=== PATIENT | female | born 1975 | race Caucasian/White ===

== ENCOUNTER 2020-01-27 12:41 | Inpatient (IN) | payer MEDICAID ==
[~2020-01-27] VITALS: Ht 165.1 cm; Wt 80.9 kg
[2020-01-27 13:00] VITALS: BP 129/61
[2020-01-27 13:17] LABS: MICROSCOPIC INDICATED
[2020-01-27 13:27] LABS: BASOPHILS # (AUTO) 0.01 x10^3/uL (0-0.1); BASOPHILS % (AUTO) 0 % (0-1); EOSINOPHILS # (AUTO) 0.06 x10^3/uL (0-0.4); EOSINOPHILS % (AUTO) 1 % (1-7); LYMPHOCYTES # (AUTO) 0.93 x10^3/uL (1-3.4); LYMPHOCYTES % (AUTO) 10 % (22-44); MD NO; MEAN CORPUSCULAR HEMOGLOBIN 29.2 pg (27.0-34.8); MEAN CORPUSCULAR HGB CONC 33.4 g/dL (32.4-35.8); MEAN CORPUSCULAR VOLUME 87.4 fL (80-100); MEAN PLATELET VOLUME 7.2 fL (7.4-10.4); MONOCYTES # (AUTO) 0.43 x10^3/uL (0.2-0.8); MONOCYTES % (AUTO) 5 % (2-9); NEUTROPHILS # (AUTO) 7.63 x10^3/uL (1.8-6.8); NEUTROPHILS % (AUTO) 84 % (42-75); PLATELET COUNT 376 x10^3/uL (130-400); RED BLOOD COUNT 3.33 x10^6/uL (3.82-5.3); RED CELL DISTRIBUTION WIDTH 12.9 % (9.6-15.2)
[2020-01-27 13:33] VITALS: BP 129/61
[2020-01-27 14:00] LABS: AMPHETAMINE SCREEN, URINE Positive (Negative); BARBITURATE SCREEN, URINE Negative (Negative); BENZODIAZEPINE SCREEN, URINE Negative (Negative); CANNABINOID SCREEN, URINE Negative (Negative); COCAINE SCREEN, URINE Negative (Negative); METHADONE SCREEN, URINE Negative (Negative); OPIATE SCREEN, URINE Negative (Negative)
[2020-01-27] MEDS ORDERED: NITR100C56 PO (15:15)
[2020-01-27] MEDS ORDERED: PREN1TAB10 PO (15:16)
[2020-01-27 15:53] LABS: CLUE CELLS NONE SEEN (NONE SEEN); WET PREP WBCS MANY (FEW)
[2020-01-27] MEDS ORDERED: CALCIUM CARBONATE 500 MG TAB.CHEW ONE (16:29)
[2020-01-27] MEDS ORDERED: CALCIUM CARBONATE 500 MG TAB.CHEW PO ONE (17:00)
[2020-01-27] MEDS ORDERED: BETAMETHASONE 6 MG/ML, 5ML IM ONE (17:43)
[2020-01-27] MEDS: BETAMETHASONE 6 MG/ML, 5ML IM SCH (17:48)
[2020-01-27 17:55] LABS: ALANINE AMINOTRANSFERASE 8 U/L (12-78); ALBUMIN 2.5 g/dL (3.4-5.0); ANION GAP 5 mmol/L (5-15); CALCIUM 8.3 mg/dL (8.5-10.1); CHLORIDE 110 mmol/L (98-107); CREATININE 0.62 mg/dL (0.55-1.02)
[2020-01-27 17:57] LABS: ALKALINE PHOSPHATASE 128 U/L (45-117); BILIRUBIN,TOTAL 0.4 mg/dL (0.2-1.0); TOTAL PROTEIN 5.8 g/dL (6.4-8.2)
[2020-01-27] MEDS ORDERED: NEWBORN KIT ONE (18:08)
[2020-01-27] MEDS: LACTATED RINGERS 1,000 ML IV SCH (18:16)
[2020-01-27] MEDS ORDERED: LACTATED RINGERS 1,000 ML IVBOLUS ONE (18:30)
[2020-01-27] MEDS ORDERED: metroNIDAZOLE 500 MG TABLET PO ONE (18:30)
[2020-01-27] MEDS ORDERED: ACETAMINOPHEN 325 MG TABLET PO PRN (19:00)
[2020-01-27] MEDS ORDERED: NICOTINE 14MG/24 HR PATCH.TD24 TD ONE (19:00)
[2020-01-27] MEDS ORDERED: ONDANSETRON 2MG/ML, 2ML IVPush PRN (19:00)
[2020-01-27] MEDS: AMPICILLIN 2 GM in SODIUM CHLORIDE 0.9% 100 ML IV SCH (19:26)
[2020-01-27] MEDS ORDERED: AZITHROMYCIN 500 MG in SODIUM CHLORIDE 0.9% 250 ML IV ONE (20:00)
[2020-01-27] MEDS ORDERED: SODIUM CITRATE/CITRIC ACID 30 ML UDC PO ONE (20:30)
[2020-01-27] MEDS ORDERED: METOCLOPRAMIDE 5 MG/ML, 2ML IV ONE (20:30)
[2020-01-27 20:40] VITALS: BP 109/57
[2020-01-27] MEDS ORDERED: TERBUTALINE 1 MG/ML, 1ML ONE (21:21)
[2020-01-27] MEDS ORDERED: TERBUTALINE 1 MG/ML, 1ML IV ONE (21:30)
[2020-01-28] MEDS ORDERED: DIPHENHYDRAMINE 25 MG CAPSULE ONE (00:41)
[2020-01-28] MEDS: DIPHENHYDRAMINE 25 MG CAPSULE PO PRN (01:00)
[2020-01-28] MEDS: AMPICILLIN 2 GM in SODIUM CHLORIDE 0.9% 100 ML IV SCH ×4 (01:01→19:17)
[2020-01-28] MEDS ORDERED: CALCIUM CARBONATE 500 MG TAB.CHEW ONE ×5 (01:02→22:16)
[2020-01-28] MEDS: CALCIUM CARBONATE 500 MG TAB.CHEW PO PRN ×5 (01:02→22:15)
[2020-01-28] MEDS: LACTATED RINGERS 1,000 ML IV SCH ×3 (01:08→23:00)
[2020-01-28 01:09] VITALS: BP 109/56
[2020-01-28 04:35] VITALS: BP 104/55
[2020-01-28] MEDS ORDERED: PRENATAL VIT/IRON/FA 1 EACH TABLET ONE (09:18)
[2020-01-28] MEDS: PRENATAL VIT/IRON/FA 1 EACH TABLET PO SCH (09:19)
[2020-01-28] MEDS ORDERED: ACETAMINOPHEN 325 MG TABLET ONE (09:50)
[2020-01-28] MEDS: BETAMETHASONE 6 MG/ML, 5ML IM SCH (17:39)
[2020-01-28] MEDS: NICOTINE 14MG/24 HR PATCH.TD24 TD SCH (21:02)
[2020-01-28] MEDS ORDERED: FAMOTIDINE 20 MG TABLET ONE (21:44)
[2020-01-28] MEDS ORDERED: FAMOTIDINE 20 MG TABLET PO PRN (22:00)
[2020-01-29] MEDS ORDERED: DIPHENHYDRAMINE 25 MG CAPSULE ONE (00:29)
[2020-01-29] MEDS: DIPHENHYDRAMINE 25 MG CAPSULE PO PRN ×2 (00:30→21:18)
[2020-01-29] MEDS: AMPICILLIN 2 GM in SODIUM CHLORIDE 0.9% 100 ML IV SCH ×3 (01:38→13:32)
[2020-01-29] MEDS: LACTATED RINGERS 1,000 ML IV SCH ×3 (02:16→16:23)
[2020-01-29 07:46] VITALS: BP 115/57
[2020-01-29] MEDS ORDERED: PRENATAL VIT/IRON/FA 1 EACH TABLET ONE (08:08)
[2020-01-29] MEDS: PRENATAL VIT/IRON/FA 1 EACH TABLET PO SCH (09:00)
[2020-01-29] MEDS ORDERED: SODIUM CITRATE/CITRIC ACID 30 ML UDC ONE (11:27)
[2020-01-29] MEDS ORDERED: METOCLOPRAMIDE 5 MG/ML, 2ML ONE (11:27)
[2020-01-29] MEDS ORDERED: OXYTOCIN 30U/ 0.9% NaCL 500ML 500 ML ONE (11:30)
[2020-01-29] MEDS: OXYTOCIN 30U/ 0.9% NaCL 500ML 500 ML IV SCH (16:23)
[2020-01-29] MEDS ORDERED: MISOPROSTOL 200 MCG TABLET ONE (16:25)
[2020-01-29] MEDS ORDERED: morphine SULFATE/PF 0.5 MG/ML, 10ML ONE (16:26)
[2020-01-29] MEDS ORDERED: MORPHINE SULFATE 4 MG/ML, 1ML IVPush PRN (16:30)
[2020-01-29] MEDS ORDERED: MISOPROSTOL 200 MCG TABLET PR PRN (16:30)
[2020-01-29] MEDS ORDERED: METHYLERGONOVINE 0.2 MG/ML IM PRN (16:30)
[2020-01-29] MEDS ORDERED: morphine SULFATE 10 MG/ML, 1ML IVPush PRN (16:30)
[2020-01-29] MEDS ORDERED: OXYcodone/APAP 5/325MG TABLET PO PRN ×4 (16:30→20:00)
[2020-01-29] MEDS ORDERED: ACETAMINOPHEN 325 MG TABLET PO PRN (16:30)
[2020-01-29] MEDS ORDERED: CARBOPROST TROMETHAMINE 250 MCG/ML, 1ML IM PRN (16:30)
[2020-01-29] MEDS ORDERED: IBUPROFEN 600 MG TABLET PO PRN (16:30)
[2020-01-29] MEDS ORDERED: DOCUSATE 100 MG CAPSULE PO PRN (16:30)
[2020-01-29] MEDS ORDERED: ONDANSETRON 2MG/ML, 2ML IV PRN (16:30)
[2020-01-29] MEDS ORDERED: SIMETHICONE 80 MG CHEW TAB PO PRN (16:30)
[2020-01-29] MEDS ORDERED: WATER-INJECTION,STERILE 10 ML IV ONE (17:06)
[2020-01-29] MEDS ORDERED: CEFAZOLIN 1,000 MG ONE (17:06)
[2020-01-29] MEDS ORDERED: DEXAMETHASONE 4 MG/ML, 1ML ONE (17:06)
[2020-01-29] MEDS ORDERED: KETOROLAC 30 MG/1 ML ONE (17:06)
[2020-01-29] MEDS ORDERED: ONDANSETRON 2MG/ML, 2ML ONE (17:06)
[2020-01-29] MEDS ORDERED: OXYTOCIN 10 UNITS/ML, 1ML ONE (17:06)
[2020-01-29] MEDS ORDERED: OXYcodone 5 MG/5 ML ORAL.SOL UDC ONE (18:06)
[2020-01-29] MEDS ORDERED: OXYcodone 5 MG/5 ML ORAL.SOL UDC PO PRN (18:30)
[2020-01-29] MEDS ORDERED: OXYcodone ORAL.CONC 20 MG/ML PO PRN (18:30)
[2020-01-29 20:00] VITALS: BP 135/82
[2020-01-29] MEDS ORDERED: ONDANSETRON 2MG/ML, 2ML IVPush PRN (20:00)
[2020-01-29] MEDS: NICOTINE 14MG/24 HR PATCH.TD24 TD SCH (21:19)
[2020-01-29 23:53] VITALS: BP 109/73
[2020-01-30] MEDS: KETOROLAC 30 MG/1 ML IVPush PRN ×4 (00:03→19:11)
[2020-01-30] MEDS: LACTATED RINGERS 1,000 ML IV SCH ×5 (00:23→16:23)
[2020-01-30 01:51] LABS: MEAN CORPUSCULAR HEMOGLOBIN 28.6 pg (27.0-34.8); MEAN CORPUSCULAR HGB CONC 32.3 g/dL (32.4-35.8); MEAN CORPUSCULAR VOLUME 88.6 fL (80-100); MEAN PLATELET VOLUME 6.9 fL (7.4-10.4); PLATELET COUNT 314 x10^3/uL (130-400); RED BLOOD COUNT 2.73 x10^6/uL (3.82-5.3); RED CELL DISTRIBUTION WIDTH 13.4 % (9.6-15.2)
[2020-01-30 02:17] LABS: MD YES
[2020-01-30 02:23] LABS: BANDS%(MANUAL) 6 % (0-7); LYMPHS% (MANUAL) 4 % (22-44); MONOS% (MANUAL) 7 % (2-9); SEGS% (MANUAL) 83 % (42-75)
[2020-01-30] MEDS: OXYTOCIN 30U/ 0.9% NaCL 500ML 500 ML IV SCH ×2 (02:23→12:23)
[2020-01-30 02:24] LABS: <PLATELET ESTIMATE> ADEQUATE; <RBC MORPHOLOGY> NORMAL; SMALL PLATELETS 1+
[2020-01-30 04:00] VITALS: BP 101/62
[2020-01-30 08:15] VITALS: BP 108/59
[2020-01-30] MEDS: PRENATAL VIT/IRON/FA 1 EACH TABLET PO SCH ×2 (09:00)
[2020-01-30 12:00] VITALS: BP_SYST 104; BP_SYST 120; BP_DIAS 69; BP_DIAS 80
[2020-01-30] MEDS ORDERED: CEFTRIAXONE 250 MG IM ONE (14:00)
[2020-01-30] MEDS ORDERED: AZITHROMYCIN 500 MG TABLET PO ONE (14:00)
[2020-01-30 16:00] VITALS: BP 121/82
[2020-01-30 20:00] VITALS: BP 106/70
[2020-01-30] MEDS: NICOTINE 14MG/24 HR PATCH.TD24 TD SCH (22:18)
[2020-01-31] MEDS: KETOROLAC 30 MG/1 ML IVPush PRN ×2 (01:56→08:00)
[2020-01-31 07:24] VITALS: BP 125/83
[2020-01-31] MEDS: PRENATAL VIT/IRON/FA 1 EACH TABLET PO SCH ×2 (08:04)
[2020-01-31] MEDS ORDERED: OXYC-302 PO (13:27)
[2020-01-31] MEDS ORDERED: IBUP-1223 PO (13:27)
[2020-01-31] MEDS ORDERED: FERR324T18 PO (13:28)
[2020-01-31] MEDS ORDERED: SENN-52 PO (13:28)
[2020-01-31] MEDS ORDERED: METR500T PO (13:29)
== END 2020-01-31 13:53 | disposition home or self-care (01) | DRG 784 ==
LOC: LDOP 12:41 → LDIP 17:40 → 2NW 01-29 19:33
PROVIDERS: ADMIT Obstetrics & Gynecology; ATTEND Obstetrics & Gynecology
PROC: 10D00Z1 Extraction of Products of Conception, Low, Open Approach (ICD-10-PCS; principal; 2020-01-27)
PROC: 0UB70ZZ Excision of Bilateral Fallopian Tubes, Open Approach (ICD-10-PCS; 2020-01-27)
DX: O34.211 Maternal care for low transverse scar from previous cesarean delivery (principal); O99.324 Drug use complicating childbirth; O98.32 Other infections with a predominantly sexual mode of transmission complicating childbirth; O42.913 Preterm premature rupture of membranes, unspecified as to length of time between rupture and onset of labor, third trimester; F15.90 Other stimulant use, unspecified, uncomplicated; A59.9 Trichomoniasis, unspecified; O99.02 Anemia complicating childbirth; N83.8 Other noninflammatory disorders of ovary, fallopian tube and broad ligament; O34.83 Maternal care for other abnormalities of pelvic organs, third trimester; Z37.0 Single live birth; Z30.2 Encounter for sterilization; Z3A.35 35 weeks gestation of pregnancy
CPT/HCPCS: 36415; 76805; 76815; 80053; 80307; 81001; 82803; 84112; 85025; 86592; 86762; 86803; 86850; 86900; 86923; 86985; 87081; 87086; 87210; 87340; 87491; 87591; 87806; 87808; 88302; 88307; G0378; J0290; J0456; J0690; J0696; J0702; J1100; J1885; J2274; J2405; G0475; J2590; J2765; J3105; J7050; J7120; Q0163

== ENCOUNTER 2020-08-26 15:35 | Emergency (ER) | payer MEDICAID ==
[~2020-08-26] VITALS: Ht 165.1 cm; Wt 83.0 kg
[~2020-08-26 15:35] MED LIST: FERR324T18 PO; IBUP-1223 PO; METR500T PO; NITR100C56 PO; OMNIPAQUE 350 MG/ML, 100ML BOTTLE ONE; OXYC-302 PO; PREN1TAB10 PO; SENN-52 PO
[2020-08-26] MEDS ORDERED: MORPHINE SULFATE 4 MG/ML, 1ML IVPush PRN (16:30)
[2020-08-26] MEDS ORDERED: ONDANSETRON 2MG/ML, 2ML IVPush ONE (16:30)
[2020-08-26] MEDS ORDERED: SODIUM CHLORIDE FLUSH 10ML SYR IVF ONE (16:30)
[2020-08-26] MEDS ORDERED: MORPHINE SULFATE 4 MG/ML, 1ML ONE (16:36)
[2020-08-26] MEDS ORDERED: ONDANSETRON 2MG/ML, 2ML ONE (16:36)
[2020-08-26 17:42] LABS: ALANINE AMINOTRANSFERASE 10 U/L (12-78); ANION GAP 4 mmol/L (5-15); CHLORIDE 106 mmol/L (98-107); CREATININE 0.62 mg/dL (0.55-1.02)
[2020-08-26 17:45] LABS: ALKALINE PHOSPHATASE 67 U/L (45-117); BILIRUBIN,TOTAL 0.4 mg/dL (0.2-1.0); TOTAL PROTEIN 7.2 g/dL (6.4-8.2)
[2020-08-26 17:54] LABS: BASOPHILS % (AUTO) 0 % (0-1); EOSINOPHILS % (AUTO) 0 % (1-7); LYMPHOCYTES % (AUTO) 10 % (22-44); MEAN CORPUSCULAR HEMOGLOBIN 28.9 pg (27.0-34.8); MEAN CORPUSCULAR HGB CONC 33.5 g/dL (32.4-35.8); MEAN PLATELET VOLUME 7.4 fL (7.4-10.4); MONOCYTES % (AUTO) 8 % (2-9); NEUTROPHILS % (AUTO) 82 % (42-75); PLATELET COUNT 341 x10^3/uL (130-400); RED BLOOD COUNT 4.38 x10^6/uL (3.82-5.3)
--- NOTE | 2020-08-26 18:26 | NUR ---
PT AT CT.
[2020-08-26 18:39] LABS: MD NO
--- NOTE | 2020-08-26 18:58 | NUR ---
received report from day shift RN, pt calm and cooperative in the room. siderails up and call light within reach.
--- NOTE | 2020-08-26 19:19 | NUR ---
exam conducted by MD and RN, pt tolerated well, samples sent to lab. pt calm and cooperative, call light within reach
[2020-08-26 19:20] LABS: CLUE CELLS PRESENT (NONE SEEN)
--- NOTE | 2020-08-26 19:24 | NUR ---
PT STRAIGHT CATHED UA WALKED TO LAB.
[2020-08-26 19:26] LABS: WET PREP WBCS MODERATE (FEW)
[2020-08-26] MEDS ORDERED: CEFTRIAXONE 250 MG IM ONE (20:00)
[2020-08-26] MEDS ORDERED: AZITHROMYCIN 500 MG TABLET PO ONE (20:00)
[2020-08-26] MEDS ORDERED: AZITHROMYCIN 500 MG TABLET ONE (20:18)
[2020-08-26] MEDS ORDERED: CEFTRIAXONE 1,000 MG ONE (20:18)
[2020-08-26 20:20] LABS: MICROSCOPIC INDICATED
[2020-08-26 20:21] LABS: HCG UR SG > 1.045 (1.003-1.030)
--- NOTE | 2020-08-26 20:26 | NUR ---
pt a&ox4. MEDS given, po and IM and pt tolerated well. waiting 20min to make sure no allergic reactions occur.
[2020-08-26 20:45] VITALS: BP 110/74
--- NOTE | 2020-08-26 20:45 | NUR ---
f/u and d/c instructions and prescriptions given to pt and she v/u. pt ambulatory and d/c'd without incident.
[2020-08-27] MEDS ORDERED: OMNIPAQUE 350 MG/ML, 100ML BOTTLE ONE (01:04)
== END 2020-08-26 21:12 | disposition home or self-care (01) ==
LOC: ED 15:54
DX: S39.012A Strain of muscle, fascia and tendon of lower back, initial encounter (principal); A54.24 Gonococcal female pelvic inflammatory disease; A56.11 Chlamydial female pelvic inflammatory disease; N89.8 Other specified noninflammatory disorders of vagina; F17.200 Nicotine dependence, unspecified, uncomplicated; X58.XXXA Exposure to other specified factors, initial encounter; Y93.89 Activity, other specified; Y92.89 Other specified places as the place of occurrence of the external cause; Y99.8 Other external cause status
CPT/HCPCS: 36415; 74177; 80053; 81001; 81025; 83690; 85025; 87077; 87086; 87186; 87210; 87491; 87591; 87808; 96372; 96374; 96375; 99285; J0696; J2270; J2405; Q9967